=== PATIENT | female | born 1960 | race African-American/Black ===

== ENCOUNTER 2025-05-18 18:02 | Emergency (ER) | payer MEDICARE, MEDICAID ==
[~2025-05-18] VITALS: Ht 162.6 cm; Wt 75.0 kg
[2025-05-18 18:04] VITALS: TEMP 36.9; O2SAT 99
[2025-05-18] MEDS: ONDANSETRON HCL 4MG/2ML INJ IV SCH (18:35)
[2025-05-18] MEDS: MAGNESIUM/ALUMINUM HYDROXIDE/SIMETHICONE 30ML UDC PO SCH (18:35)
[2025-05-18] MEDS: SODIUM CHLORIDE 0.9% 1,000 ML IV ONE (18:36)
[2025-05-18 19:14] LABS: HEMATOCRIT. 40.7 % (36.0-48.0); HEMOGLOBIN. 13.3 g/dL (12.0-16.0); MEAN PLATELET VOLUME 7.6 fl (7.4-10.4); PLATELET 327 x1000/uL (130-400); RED BLOOD CELL COUNT 4.65 mill/uL (4.2-5.4); RED CELL DISTRIBUTION WIDTH 15.5 % (11.6-14.6)
[2025-05-18] MEDS: FAMOTIDINE 20MG/2ML VIAL IV SCH (19:14)
[2025-05-18 19:27] LABS: CREATININE 0.7 mg/dL (0.6-1.0); UREA NITROGEN BLOOD 9 mg/dL (9-23)
[2025-05-18 19:28] LABS: TROPONIN I HIGH SENSITIVITY < 4 ng/L (3.0-34)
[2025-05-18 19:40] LABS: EOSINOPHILS % MANUAL 25.0 % (0.0-5.0); LYMPHOCYTES % MANUAL 28.0 % (20.0-60.0); MONOCYTES % MANUAL 2.0 % (2.0-8.0); NEUTROPHILS % MANUAL 45.0 % (45.0-75.0)
[2025-05-18 19:41] LABS: PLATELET ESTIMATE NORMAL
[2025-05-18 21:21] VITALS: PULSE 84; RESP 14
[2025-05-18] MEDS: KETOROLAC 30MG/ML VIAL IV ONE (21:21)
[2025-05-18 21:22] VITALS: BP 200/110
[2025-05-18] MEDS: LABETALOL 5MG/ML 4ML INJ IV ONE (21:22)
== END 2025-05-18 22:10 | disposition admitted as inpatient to this hospital (09) ==
LOC: ER 18:02 → EDBEDREQ 20:27 → EDBEDREQTM 20:27 → ENRESERV 21:03 → ER 22:10 → CANBEDREQ 22:58 → CANRESERV 23:00 → ENRESERVTM 23:00 → CMPBEDREQ 05-19 08:18
DX: I24.9 Acute ischemic heart disease, unspecified (principal); I10 Essential (primary) hypertension; R06.02 Shortness of breath; Z88.5 Allergy status to narcotic agent; Z98.890 Other specified postprocedural states
CPT/HCPCS: 99285; 96374; 96375; 71045; 96361; 80048; 83880; 85025; 85379; 84484; 36415; 93005; J1885; J1308; J3490; J2405